=== PATIENT | male | born 1975 | race Caucasian/White ===

== ENCOUNTER 2017-10-03 07:27 | Emergency (ER) | payer SELFPAY ==
--- NOTE | 2017-10-03 08:24 | ED.PDOC ---
History of Present Illness - General Chief Complaint: Skin/Abrasion/Tear Time Seen by Provider: 10/03/17 08:17 Source: patient Exam Limitations: no limitations Additional Information: PUNCTURE WOUND R THIGH. WAS FINNED BY CATFISH. C/O PAIN, BRUISING. - History of Present Illness Timing/Duration: other - YESTERDAY Severity: moderate Improving Factors: nothing Worsening Factors: other - WEIGHT BEARING Associated Symptoms: other - CHILL, NIGHT SWEATS Allergies/Adverse Reactions: Allergies NO KNOWN ALLERGY Allergy (Verified 10/03/17 07:49) Home Medications: Ambulatory Orders Cephalexin Monohydrate [Keflex] 500 mg PO TID #30 cap 10/03/17 Tramadol HCl [Ultram] 50 mg PO Q6HR PRN #15 tab 10/03/17 Review of Systems - Review of Systems Constitutional: Denies: chills, fever EENTM: States: no symptoms reported Respiratory: States: no symptoms reported Gastrointestinal/Abdominal: Denies: nausea, vomiting Musculoskeletal: States: muscle pain. Denies: muscle stiffness Skin: States: other - BRUISING Neurological: States: no symptoms reported Past Medical History (General) - Patient Medical History Hx Seizures: No Hx Stroke: No Hx Asthma: No Hx of COPD: No Hx Cardiac Disorders: No Hx Congestive Heart Failure: No Hx Pacemaker: No Hx Hypertension: No Hx Thyroid Disease: No Hx Diabetes: No Hx Gastroesophageal Reflux: No Hx Renal Disease: No Surgical History: no surgical history - Vaccination History Hx Influenza Vaccination: No Family Medical History - Family History Mother Family History: No Known Physical Exam - Physical Exam General Appearance: Comfortable, No apparent distress Eye Exam: bilateral normal Ears, Nose, Throat: hearing grossly normal, normal ENT inspection Neck: full range of motion, supple Back Exam: normal inspection, no vertebral tenderness Extremity: normal range of motion, other - PUNCTURE WOUND TO R THIGH LAT ASPECT. 4CM SURROUNDING ECCHYMOSIS, NO INDURATION, MOD PAIN TO PALPATION, NO FLUCTUENCE, NVI Neurologic: alert, normal mood/affect Skin Exam: other - BRUISING, NO ERYTHEMA, NO INCREASED WARMTH Lymphatic: no adenopathy Progress - EKG/XRAY/CT XRAY: FEMUR, KELVIN Departure - Departure Clinical Impression: Puncture wound of thigh Qualifiers: Encounter type: initial encounter Laterality: right Qualified Code(s): S71.131A - Puncture wound without foreign body, right thigh, initial encounter Time of Disposition: 09:20 Disposition: Discharge to Home or Self Care Condition: Good Departure Forms: ED Discharge - Pt. Copy, Patient Portal Self Enrollment, Work Release Form Instructions: DI for Abrasion, DI for Wound Infection Activity: other - RETURN TO WORK 10/05/2017 Prescriptions: Tramadol HCl [Ultram] 50 mg PO Q6HR PRN #15 tab PRN Reason: Pain Cephalexin Monohydrate [Keflex] 500 mg PO TID #30 cap Home Medications: Ambulatory Orders Cephalexin Monohydrate [Keflex] 500 mg PO TID #30 cap 10/03/17 Tramadol HCl [Ultram] 50 mg PO Q6HR PRN #15 tab 10/03/17
--- NOTE | 2017-10-03 09:07 | RAD ---
EXAM DESCRIPTION: Femur,Right CLINICAL HISTORY: PUNCTURE WOUND R LEG COMPARISON: None. TECHNIQUE: AP and lateral right FINDINGS: I see no bone joint or soft tissue abnormality. No repeat foreign body is detected in the soft tissues. IMPRESSION: Normal right femur Electronically signed by: Blake Dietz MD 10/03/2017 9:06 AM CDT
[2017-10-03 09:45] VITALS: BP 124/85; TEMP 97.2; O2SAT 97
== END 2017-10-03 09:45 | disposition home or self-care (01) ==
LOC: ER 07:27 → EDSEX 07:27 → ER 09:45
DX: S71.131A Puncture wound without foreign body, right thigh, initial encounter (principal); X58.XXXA Exposure to other specified factors, initial encounter